=== PATIENT | female | born 1970 | race Caucasian/White ===

== ENCOUNTER 2019-09-28 08:23 | Outpatient (CLI) | payer OTHER ==
--- NOTE | 2019-09-28 09:17 | MMO ---
Bilateral MAMMO Bilat Screen [facility]. CLINICAL HISTORY: Patient is 48 years old and is seen for screening. The patient has the following family history of breast cancer: maternal aunt. The patient has a history of cervical cancer in December,. VIEWS: The views performed were: bilateral craniocaudal with tomosynthesis; bilateral mediolateral oblique with tomosynthesis; and left craniocaudal. FILMS COMPARED: The present examination has been compared to prior imaging studies performed at [facility] on 11/22/2014, 12/14/2014 and 03/01/2016. This study has been interpreted with the assistance of computer-aided detection. MAMMOGRAM FINDINGS: There are scattered fibroglandular densities. There are no suspicious masses, suspicious calcifications, or new areas of architectural distortion. IMPRESSION: THERE IS NO MAMMOGRAPHIC EVIDENCE OF MALIGNANCY. A ROUTINE FOLLOW-UP MAMMOGRAM IN 1 YEAR IS RECOMMENDED. THE RESULTS OF THIS EXAM WERE SENT TO THE PATIENT. ACR BI-RADS Category 1 - Negative MAMMOGRAPHY NOTE: 1. A negative mammogram report should not delay a biopsy if a dominant of clinically suspicious mass is present. 2. Approximately 10% to 15% of breast cancers are not detected by mammography. 3. Adenosis and dense breasts may obscure an underlying neoplasm. Reported by: YANNICK COURTNEY MD Electonically Signed: [id number]
== END 2019-09-28 08:24 | disposition home or self-care (01) ==
LOC: BICMAMMO 08:23
PROVIDERS: ATTEND Family Medicine
DX: Z12.31 Encounter for screening mammogram for malignant neoplasm of breast (principal); Z80.3 Family history of malignant neoplasm of breast; Z85.41 Personal history of malignant neoplasm of cervix uteri
CPT/HCPCS: 77063; 77067

== ENCOUNTER 2020-04-07 07:59 | Outpatient (CLI) | payer OTHER ==
--- NOTE | 2020-04-07 12:43 | MRI ---
MRI LEFT KNEE: DAET: 04/07/2020. PROVIDED CLINICAL HISTORY: Pain. FINDINGS: Evaluation is limited due to patient body habitus. The anterior cruciate ligament, posterior cruciate ligament, medial collateral ligament, and lateral collateral ligamentous complex demonstrate an intact MR appearance, as does the extensor mechanism. There is partial thickness radial tearing involving the body of the lateral meniscus. There is compl ex nondisplaced tearing involving the body of the medial meniscus. There is lateral tilt of the patella as well as lateral patellar tracking. There is signal inhomogen eity involving the patellar articular cartilage with at least one focus of full-thickness articular c artilage fissuring involving the lateral patellar facet. There is full-thickness articular cartilage loss involving the posterior central weightbearing portions of the lateral femoral condyle measuring approximately 8 m in AP dimension and 5 mm in transverse dimension. There is a moderate knee joint effusion. No focal concerning regional marrow or muscular signal abnormality is evident. IMPRESSION: 1. Limited study as above. 2. Medial and lateral meniscal tears. 3. 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 4. Moderate knee joint effusion. POS: AH
== END 2020-04-07 08:00 | disposition home or self-care (01) ==
LOC: BICMRI 07:59
PROVIDERS: ATTEND Family Medicine
DX: M25.562 Pain in left knee (principal); S83.242A Other tear of medial meniscus, current injury, left knee, initial encounter; S83.282A Other tear of lateral meniscus, current injury, left knee, initial encounter

== ENCOUNTER 2021-05-17 08:55 | Outpatient (CLI) | payer OTHER ==
[2021-05-17] MEDS ORDERED: Iopamidol-370 76% 500 ML 1 ML ONE (10:52)
== END 2021-05-17 08:56 | disposition home or self-care (01) ==
LOC: BICCT 08:55
PROVIDERS: ATTEND Family Medicine
DX: R10.32 Left lower quadrant pain (principal); K57.30 Diverticulosis of large intestine without perforation or abscess without bleeding; Z80.41 Family history of malignant neoplasm of ovary
CPT/HCPCS: 74177; Q9967

== ENCOUNTER 2021-06-25 13:02 | Emergency (ER) | payer OTHER ==
[2021-06-25] MEDS ORDERED: Lidocaine Viscous Sol 2% 15 ml UD Cup ONE (14:36)
== END 2021-06-25 14:45 | disposition home or self-care (01) ==
LOC: ERS 13:02
DX: K13.70 Unspecified lesions of oral mucosa (principal); F17.210 Nicotine dependence, cigarettes, uncomplicated
CPT/HCPCS: 99282

== ENCOUNTER 2021-07-14 09:23 | Outpatient (CLI) | payer OTHER | END 2021-07-14 09:24 | disposition home or self-care (01) | LOC: BICULT 09:23 | PROVIDERS: ATTEND Family Medicine | DX: R10.32 Left lower quadrant pain (principal) | CPT/HCPCS: 76856 ==

== ENCOUNTER 2022-01-25 10:01 | Outpatient (CLI) | payer OTHER ==
[2022-01-25 11:19] LABS: #Eosinphils 0.2 10x3/uL (0.0-0.5); #Monocytes 0.5 10x3/uL (0.0-1.1); #Neutrophils 2.7 10x3/uL (1.5-8.4); %Basophils 0.6 % (0.0-2.0); %Eosinophils 3.3 % (0.0-6.0); %Lymphocytes 30.7 % (18.0-47.0); %Monocytes 10.2 % (0.0-10.0); Hemoglobin 13.8 g/dL (12.0-15.5); Mean Corpuscular HGB CONC 32.5 g/dL (32.0-36.0); Mean Corpuscular Hemoglobin 31.5 pg (27.0-33.0); Mean Corpuscular Volume 96.8 fl (81.6-98.3); Mean Platelet Volume 9.8 fl (7.4-10.4); Platelet Count 214 10x3/uL (150-450); RBC Distribution Width 12.1 % (11.5-14.5); Red Blood Cell (RBC) Count 4.38 10x6/uL (3.90-5.03); White Blood Cell (WBC) Count 4.9 10x3/uL (3.5-10.5)
[2022-01-25 11:28] LABS: INR-International Normal Ratio 0.9; Prothrombin Time 9.8 sec (9.5-12.1)
[2022-01-25 11:30] LABS: Anion Gap 14 mmol/L (10-20); BUN (Urea Nitrogen) 14 mg/dL (9.8-20.1); Calc. Creatinine Clearance 0 mL/min (70-130); Calcium 9.5 mg/dL (7.8-10.44); Carbon Dioxide 30 mmol/L (22-29); Chloride 102 mmol/L (98-107); Glucose 95 mg/dL (70-105); Potassium 4.3 mmol/L (3.5-5.1); Sodium 142 mmol/L (136-145)
[2022-01-25 18:14] LABS: SARS-CoV-2 PCR by NAA Not Detected (NotDetected)
== END 2022-01-25 10:02 | disposition home or self-care (01) ==
LOC: LABBT 10:01
PROVIDERS: ATTEND Orthopaedic Surgery
DX: Z01.812 Encounter for preprocedural laboratory examination (principal); M17.12 Unilateral primary osteoarthritis, left knee; Z20.822 Contact with and (suspected) exposure to COVID-19
CPT/HCPCS: 80048; 85025; 85610; 87081; U0003; U0005

== ENCOUNTER 2022-01-30 05:30 | Observation (INO) | payer OTHER ==
[2022-01-25 13:33] VITALS: BMI 47.9
[2022-01-30] MEDS ORDERED: Sodium Chloride 0.9% 100 ML ONE ×2 (06:27→06:47)
[2022-01-30] MEDS ORDERED: Vancomycin (BATCH) 1.5 GRAM/300 ML BAG ONE (06:27)
[2022-01-30] MEDS ORDERED: Tranexamic Acid 1,000 MG/10 ML VIAL ONE (06:27)
[2022-01-30] MEDS ORDERED: Bupivacaine PF 0.5% 30 ML VIAL ONE ×2 (06:37→06:47)
[2022-01-30] MEDS ORDERED: Fentanyl 100 MCG/2 ML VIAL ONE ×2 (06:37→09:31)
[2022-01-30] MEDS ORDERED: Lidocaine 1% (PF) 30 ML VIAL ONE (06:37)
[2022-01-30] MEDS ORDERED: Midazolam HCl 2 mg/2 ml Vial ONE (06:37)
[2022-01-30] MEDS ORDERED: Lidocaine 1% PF 5 ML VIAL ONE (06:46)
[2022-01-30] MEDS ORDERED: Ketorolac Tromethamine 30 MG/ML VIAL ONE (06:46)
[2022-01-30] MEDS ORDERED: Ondansetron PF 4 MG/2 ML Vial ONE (06:46)
[2022-01-30] MEDS ORDERED: Bupivacaine HCl 0.5%/Epinephrine 1:200,000/PF 30 ml Vial ONE (06:46)
[2022-01-30] MEDS ORDERED: Dexamethasone 20 MG/5 ML VIAL ONE (06:46)
[2022-01-30] MEDS ORDERED: PROPOFOL 200 MG/20 ML VIAL ONE (06:46)
[2022-01-30] MEDS ORDERED: CEFAZOLIN 1 GM VIAL ONE (06:47)
[2022-01-30] MEDS ORDERED: CEFAZOLIN 2 GM VIAL ONE (06:47)
[2022-01-30] MEDS ORDERED: EPINEPHrine 1 MG/ML AMP ONE (06:47)
[2022-01-30] MEDS ORDERED: Promethazine HCl 25 MG/ML VIAL ONE ×2 (07:03→09:35)
[2022-01-30] MEDS ORDERED: Fentanyl 100 MCG/2 ML VIAL SLOW IVP PRN (07:21)
[2022-01-30] MEDS ORDERED: Ropivacaine 0.2% 550 ML 550 ML NERVE BLCK SCH (07:30)
[2022-01-30] MEDS ORDERED: traMADol HCl 50 MG TAB PO PRN ×2 (07:30)
[2022-01-30] MEDS ORDERED: HYDROcodone/Acetaminophen 10/325 mg Tablet PO PRN (07:30)
[2022-01-30] MEDS ORDERED: Zolpidem Tartrate 5 MG TAB PO PRN ×2 (07:30→10:30)
[2022-01-30] MEDS ORDERED: Ondansetron PF 4 MG/2 ML Vial IVP PRN ×2 (07:30→10:30)
[2022-01-30] MEDS ORDERED: Promethazine HCl 25 MG/ML VIAL IM PRN ×2 (07:30→10:30)
[2022-01-30] MEDS ORDERED: diphenhydrAMINE 25 MG CAP PO PRN (10:30)
[2022-01-30] MEDS ORDERED: Acetaminophen 325 MG TAB PO PRN (10:30)
[2022-01-30] MEDS: Sodium Chloride 0.9% 1,000 ML IV SCH ×2 (11:45→23:07)
[2022-01-30] MEDS: Ketorolac Tromethamine 30 MG/ML VIAL IVP SCH ×2 (11:48→17:16)
[2022-01-30] MEDS: HYDROcodone/Acetaminophen 10/325 mg Tablet PO PRN (12:56)
[2022-01-30] MEDS: busPIRone HCl 10 MG TAB PO SCH ×2 (13:00→21:04)
[2022-01-30] MEDS: CEFAZOLIN 2 GM in Sodium Chloride 0.9% 100 ML IVPB SCH (15:16)
[2022-01-30] MEDS ORDERED: Vancomycin 1.5 GRAM/300 ML BAG 1.5 GM in Premix Bag 1 BAG IVPB SCH (18:00)
[2022-01-30] MEDS: Senokot S 8.6-50 MG TAB PO SCH (21:03)
[2022-01-30] MEDS: traZODone HCl 50 MG TAB PO SCH (21:03)
[2022-01-30] MEDS: Ferrous Gluconate 324 MG TAB PO SCH (21:04)
[2022-01-30] MEDS: Atorvastatin Calcium 40 MG TAB PO SCH (21:04)
[2022-01-30] MEDS: Aspirin 81 mg Enteric Coated Tablet PO SCH (21:04)
[2022-01-31] MEDS: CEFAZOLIN 2 GM in Sodium Chloride 0.9% 100 ML IVPB SCH (00:02)
[2022-01-31] MEDS: Ketorolac Tromethamine 30 MG/ML VIAL IVP SCH ×4 (00:02→18:11)
[2022-01-31] MEDS: Sodium Chloride 0.9% 1,000 ML IV SCH ×3 (00:24→18:10)
[2022-01-31 06:45] LABS: Hemoglobin 12.2 g/dL (12.0-16.0); Mean Corpuscular HGB CONC 31.3 g/dL (32.0-36.0); Mean Corpuscular Hemoglobin 32.6 pg (27.0-31.0); Mean Platelet Volume 7.3 fL (7.4-10.4); Platelet Count 178 thou/uL (130-400); Red Blood Cell (RBC) Count 3.75 mill/uL (4.20-5.40); White Blood Cell (WBC) Count 10.9 thou/uL (4.8-10.8)
[2022-01-31] MEDS: HYDROcodone/Acetaminophen 10/325 mg Tablet PO PRN ×2 (08:52→20:53)
[2022-01-31] MEDS: busPIRone HCl 10 MG TAB PO SCH ×3 (08:54→20:56)
[2022-01-31] MEDS: Aspirin 81 mg Enteric Coated Tablet PO SCH ×2 (08:54→20:54)
[2022-01-31] MEDS: Ferrous Gluconate 324 MG TAB PO SCH ×2 (08:55→20:55)
[2022-01-31] MEDS: Multivitamin W/ Minerals 1 TAB PO SCH (08:56)
[2022-01-31] MEDS: Montelukast Sodium 10 mg Tablet PO SCH (08:56)
[2022-01-31] MEDS: Senokot S 8.6-50 MG TAB PO SCH ×2 (08:56→20:55)
[2022-01-31] MEDS: Aripiprazole 10 MG TAB PO SCH (09:09)
[2022-01-31] MEDS: Atorvastatin Calcium 40 MG TAB PO SCH (20:55)
[2022-01-31] MEDS: traZODone HCl 50 MG TAB PO SCH (20:55)
[2022-02-01] MEDS: Ketorolac Tromethamine 30 MG/ML VIAL IVP SCH ×2 (00:54→05:03)
[2022-02-01] MEDS: Sodium Chloride 0.9% 1,000 ML IV SCH (01:00)
[2022-02-01 07:34] LABS: Hemoglobin 12.6 g/dL (12.0-16.0); Mean Corpuscular HGB CONC 31.3 g/dL (32.0-36.0); Mean Corpuscular Hemoglobin 32.5 pg (27.0-31.0); Mean Platelet Volume 7.5 fL (7.4-10.4); Platelet Count 166 thou/uL (130-400); RBC Distribution Width 11.1 % (11.5-14.5); Red Blood Cell (RBC) Count 3.88 mill/uL (4.20-5.40)
[2022-02-01] MEDS: Aripiprazole 10 MG TAB PO SCH (09:05)
[2022-02-01] MEDS: Multivitamin W/ Minerals 1 TAB PO SCH (09:06)
[2022-02-01] MEDS: Ferrous Gluconate 324 MG TAB PO SCH (09:06)
[2022-02-01] MEDS: HYDROcodone/Acetaminophen 10/325 mg Tablet PO PRN (09:06)
[2022-02-01] MEDS: Montelukast Sodium 10 mg Tablet PO SCH (09:07)
[2022-02-01] MEDS: Aspirin 81 mg Enteric Coated Tablet PO SCH (09:08)
[2022-02-01] MEDS: busPIRone HCl 10 MG TAB PO SCH (09:08)
[2022-02-01] MEDS: Senokot S 8.6-50 MG TAB PO SCH (09:23)
[2022-02-01 12:04] VITALS: BP 94/68; TEMP 98.2
== END 2022-02-01 12:30 | disposition home or self-care (01) ==
LOC: SDC 05:30 → SURG A 10:19 → SDC 10:36
PROVIDERS: ADMIT Orthopaedic Surgery; ATTEND Orthopaedic Surgery
PROC: 0SRD0J9 Replacement of Left Knee Joint with Synthetic Substitute, Cemented, Open Approach (ICD-10-PCS; principal; 2022-01-30)
DX: M17.12 Unilateral primary osteoarthritis, left knee (principal); I10 Essential (primary) hypertension; Z79.899 Other long term (current) drug therapy; Z88.8 Allergy status to other drugs, medicaments and biological substances; Z87.891 Personal history of nicotine dependence
CPT/HCPCS: 36415; 85027; 96365; 96366; 96375; 96376; A4306; C1713; C1776; G0378; J0171; J0690; J1100; J1885; J2001; J2250; J2405; J2550; J2704; J2795; J3010; J3370; J3490; J7050; S0020

== ENCOUNTER 2022-10-15 09:26 | Outpatient (CLI) | payer OTHER | END 2022-10-15 09:27 | disposition home or self-care (01) | LOC: BICRAD 09:26 | PROVIDERS: ATTEND Student in an Organized Health Care Education/Training Program | DX: M25.562 Pain in left knee (principal) ==

== ENCOUNTER → 2022-12-06 | Outpatient (CLI) | payer OTHER | LOC: SLEEPLAB 19:00 | PROVIDERS: ATTEND Family Medicine | DX: G47.33 Obstructive sleep apnea (adult) (pediatric) (principal); R53.83 Other fatigue; R51.9 Headache, unspecified; F31.9 Bipolar disorder, unspecified; E66.9 Obesity, unspecified; R06.82 Tachypnea, not elsewhere classified; I25.10 Atherosclerotic heart disease of native coronary artery without angina pectoris | CPT/HCPCS: 95811 ==

== ENCOUNTER 2023-01-04 10:17 | Outpatient (CLI) | payer OTHER | END 2023-01-04 10:18 | disposition home or self-care (01) | LOC: BICMAMMO 10:17 | PROVIDERS: ATTEND Family Medicine | DX: Z12.31 Encounter for screening mammogram for malignant neoplasm of breast (principal); Z80.3 Family history of malignant neoplasm of breast; Z85.41 Personal history of malignant neoplasm of cervix uteri | CPT/HCPCS: 77067 ==

== ENCOUNTER 2023-06-19 12:33 | Emergency (ER) | payer OTHER ==
[2023-06-19] MEDS ORDERED: Ketorolac Tromethamine 30 MG/ML VIAL ONE (14:11)
[2023-06-19] MEDS ORDERED: Cyclobenzaprine 10 MG TAB ONE (14:11)
== END 2023-06-19 14:47 | disposition home or self-care (01) ==
LOC: ERS 12:33
DX: M54.9 Dorsalgia, unspecified (principal); F17.210 Nicotine dependence, cigarettes, uncomplicated; Z79.82 Long term (current) use of aspirin; Z79.899 Other long term (current) drug therapy
CPT/HCPCS: 96372; 99283; J1885

== ENCOUNTER 2023-09-14 09:00 | Emergency (ER) | payer OTHER | END 2023-09-14 10:04 | disposition home or self-care (01) | LOC: ERS 09:00 | DX: S93.504A Unspecified sprain of right lesser toe(s), initial encounter (principal); W22.8XXA Striking against or struck by other objects, initial encounter; F17.290 Nicotine dependence, other tobacco product, uncomplicated ==

== ENCOUNTER 2024-03-16 17:29 | Emergency (ER) | payer OTHER ==
[2024-03-16] MEDS ORDERED: Ketorolac Tromethamine 30 MG (1 mL) VIAL ONE (18:47)
[2024-03-16] MEDS ORDERED: Orphenadrine Citrate 60 MG/2 ML VIAL ONE (18:48)
[2024-03-16] MEDS ORDERED: HYDROcodone/Acetaminophen 5/325 mg Tablet ONE (19:38)
== END 2024-03-16 19:38 | disposition home or self-care (01) ==
LOC: ERS 17:29
DX: M54.50 Low back pain, unspecified (principal); G89.29 Other chronic pain; F17.290 Nicotine dependence, other tobacco product, uncomplicated; Z79.899 Other long term (current) drug therapy
CPT/HCPCS: 96372; 99282; J1885; J2360

== ENCOUNTER 2024-05-21 10:52 | Outpatient (CLI) | payer OTHER | END 2024-05-21 10:53 | disposition home or self-care (01) | LOC: BICCT 10:52 | PROVIDERS: ATTEND Family Medicine | DX: Z12.2 Encounter for screening for malignant neoplasm of respiratory organs (principal); F17.210 Nicotine dependence, cigarettes, uncomplicated | CPT/HCPCS: 71271 ==

== ENCOUNTER 2025-03-25 12:30 | Inpatient (IN) | payer OTHER ==
[2025-03-25 11:13] VITALS: BMI 49.5
[2025-03-30] MEDS ORDERED: Acetaminophen 500 MG TAB ONE ×2 (07:04→15:59)
[2025-03-30] MEDS ORDERED: Ketorolac Tromethamine 30 MG (1 mL) VIAL ONE (07:04)
[2025-03-30] MEDS ORDERED: Heparin 5,000 UNITS/ML VIAL ONE (07:05)
[2025-03-30] MEDS ORDERED: CEFAZOLIN 2 GM VIAL ONE (07:05)
[2025-03-30] MEDS ORDERED: Lidocaine 1% PF 5 ML VIAL ONE (08:11)
[2025-03-30] MEDS ORDERED: PROPOFOL 20 ML ONE (08:11)
[2025-03-30] MEDS ORDERED: PROPOFOL 60 ML ONE (08:12)
[2025-03-30] MEDS ORDERED: Rocuronium Bromide 10 MG/ML (10ML VIAL) ONE ×2 (08:12→10:02)
[2025-03-30] MEDS ORDERED: fentaNYL PF 100 MCG/2 ML SYRINGE ONE ×3 (08:15→12:50)
[2025-03-30] MEDS ORDERED: Bupivacaine 0.25% HCL 30 ML VIAL ONE (08:24)
[2025-03-30] MEDS ORDERED: Albuterol HFA (OR) 200 PUFF INH ONE (09:43)
[2025-03-30] MEDS ORDERED: Ondansetron PF 4 MG/2 ML Vial ONE (11:02)
[2025-03-30] MEDS ORDERED: SUGAMMADEX SODIUM 200 MG/2 ML VIAL ONE (11:02)
[2025-03-30] MEDS ORDERED: hydrALAZINE 20 MG/ML VIAL SLOW IVP PRN (13:43)
[2025-03-30] MEDS ORDERED: Dextrose 50% Abboject 50 ML SYRINGE SLOW IVP PRN (13:43)
[2025-03-30] MEDS ORDERED: diphenhydrAMINE 50 MG/ML VIAL IVP PRN (13:43)
[2025-03-30] MEDS ORDERED: Glucagon 1 MG/ML KIT IM PRN (13:43)
[2025-03-30] MEDS: D5 1/2 NS w/20 mEq KCL 1,000 ML IV SCH (20:38)
[2025-03-31] MEDS: oxyCODONE 5 MG TAB PO PRN (02:10)
[2025-03-31] MEDS: Ondansetron PF 4 MG/2 ML Vial IVP PRN (02:52)
[2025-03-31 06:31] LABS: #Basophils Less than 0.03 10x3/uL (0.0-0.2); #Eosinophils Less than 0.03 10x3/uL (0.0-0.7); #Monocytes 0.89 10x3/uL (0.11-0.59); #Neutrophils 7.66 10x3/uL (1.40-6.50); %Basophils 0.0 % (0.0-1.0); %Eosinophils 0.1 % (0.0-10.0); %Lymphocytes 9.9 % (21.0-51.0); %Monocytes 9.3 % (0.0-10.0); %Neutrophils 80.5 % (42.0-75.0); Hematocrit 38.0 % (36.0-47.0); Hemoglobin 12.1 g/dL (12.0-16.0); Mean Corpuscular Hemoglobin 31.7 pg (27.0-31.0); Mean Corpuscular Volume 99.5 fL (78.0-98.0); Platelet Count 194 10x3/uL (130-400); Red Blood Cell (RBC) Count 3.82 mill/uL (4.20-5.40); White Blood Cell (WBC) Count 9.52 10x3/uL (4.8-10.8)
[2025-03-31 08:23] LABS: Anion Gap 16 mmol/L (10-20); BUN (Urea Nitrogen) 15 mg/dL (9.8-20.1); Calc. Creatinine Clearance 140 mL/min (70-130); Calcium 8.3 mg/dL (7.8-10.44); Carbon Dioxide 19 mmol/L (22-29); Chloride 108 mmol/L (98-107); Glucose 142 mg/dL (70-105); Potassium 4.7 mmol/L (3.5-5.1); Sodium 138 mmol/L (136-145)
[2025-03-31] MEDS: Enoxaparin 40 MG (0.4 mL) SYRINGE SC SCH (08:37)
[2025-03-31] MEDS: Pantoprazole 40 MG VIAL IVP SCH (08:37)
[2025-03-31 12:35] VITALS: BP 149/73; TEMP 98.8
== END 2025-03-31 12:35 | disposition home or self-care (01) | DRG 621 ==
LOC: SURG A 03-30 06:39 → T4-B 03-30 20:22
PROVIDERS: ADMIT Surgery; ATTEND Surgery
PROC: 0D164ZA Bypass Stomach to Jejunum, Percutaneous Endoscopic Approach (ICD-10-PCS; principal; 2025-03-30)
DX: E66.01 Morbid (severe) obesity due to excess calories (principal); F41.9 Anxiety disorder, unspecified; M19.90 Unspecified osteoarthritis, unspecified site; G89.29 Other chronic pain; F32.A Depression, unspecified; E11.9 Type 2 diabetes mellitus without complications; G47.33 Obstructive sleep apnea (adult) (pediatric); Z79.899 Other long term (current) drug therapy; Z79.4 Long term (current) use of insulin; Z79.82 Long term (current) use of aspirin; Z85.3 Personal history of malignant neoplasm of breast; Z85.41 Personal history of malignant neoplasm of cervix uteri; Z98.890 Other specified postprocedural states; Z98.51 Tubal ligation status; Z90.710 Acquired absence of both cervix and uterus; Z87.891 Personal history of nicotine dependence; Z88.8 Allergy status to other drugs, medicaments and biological substances; Z68.42 Body mass index [BMI] 45.0-49.9, adult
CPT/HCPCS: 36415; 36416; 80048; 85025; J0169; J0665; J1100; J1644; J1650; J1815; J1885; J2250; J2405; J2470; J2704; J3480; S2900